=== PATIENT | male | born 1990 | race Two or more races ===

== ENCOUNTER 2016-11-13 13:50 | Emergency (ER) | payer BC ==
[~2016-11-13] VITALS: Ht 175.3 cm; Wt 83.9 kg
[2016-11-13 15:11] VITALS: BP 108/69
== END 2016-11-13 15:11 | disposition home or self-care (01) ==
LOC: ED 13:50
DX: S63.287A Dislocation of proximal interphalangeal joint of left little finger, initial encounter (principal); Y93.67 Activity, basketball; Y99.8 Other external cause status; Y92.89 Other specified places as the place of occurrence of the external cause
CPT/HCPCS: A4570; J2001